=== PATIENT | female | born 1995 | race Caucasian/White ===

== ENCOUNTER 2018-04-24 02:09 | Emergency (ER) | payer MEDICAID ==
[~2018-04-24] VITALS: Ht 167.6 cm; Wt 80.7 kg
[2018-04-24 02:24] VITALS: Ht 167.6 cm; Wt 80.7 kg
[2018-04-24 04:28] LABS: microscopic required? YES; urine erythrocyte NEGATIVE (NEGATIVE)
[2018-04-24 06:08] VITALS: BP 100/65
== END 2018-04-24 06:08 | disposition home or self-care (01) ==
LOC: ED 02:09
PROVIDERS: Emergency Medicine
DX: O23.32 Infections of other parts of urinary tract in pregnancy, second trimester (principal); Z90.89 Acquired absence of other organs; Z3A.20 20 weeks gestation of pregnancy
CPT/HCPCS: Q0092